=== PATIENT | male | born 1930 | race Caucasian/White ===

== ENCOUNTER 2017-07-07 18:15 | Observation (INO) ==
[2017-07-07 18:39] LABS: Microscopic, Urine URINE MICROSCOPIC (MICROSCOPIC)
[2017-07-07 18:41] LABS: Appearance,Urine SL CLOUDY (Clear); Bilirubin,Urine Negative (Negative); Blood, Urine 3+ (Negative); Color,Urine YELLOW (Yellow); Glucose,Urine (UA) Negative (Negative); Ketones,Urine Negative (Negative); Leukocyte Esterase,Urine 2+ (Negative); Protein,Urine TRACE (Negative); Urobilinogen,Urine 0.2 EU/dl (0.2)
[2017-07-07 18:51] LABS: Basophils % 0.6 % (0.1-2.0); Eosinophils # 0.1 K/mm3 (0.0-0.4); Eosinophils % 2.4 % (0.1-12.0); Lymphocytes % 21.4 K/mm3 (10-50); Mean Corpuscular HGB Conc 32.4 g/dL (31.8-35.4); Mean Corpuscular Hemoglobin 29.7 pg (27.0-31.2); Mean Corpuscular Volume 91.8 fl (80-94); Mean Platelet Volume 7.5 fl (7.4-10.4); Monocytes # 0.3 K/mm3 (0.1-1.0); Monocytes % 6.1 % (1.7-9.3); Neutrophils # 3.3 K/mm3 (1.8-7.8); Neutrophils % 69.5 % (37.0-80.0); Platelet Count 224 K/mm3 (142-424); Red Blood Count 3.37 M/mm3 (4.60-6.20); White Blood Count 4.7 K/mm3 (4.8-10.8)
--- NOTE | 2017-07-07 19:01 | Emergency Department Note ---
ED Disposition Clinical Impression: Urinary tract infection Qualifiers: Urinary tract infection type: site unspecified Hematuria presence: with hematuria Qualified Code(s): N39.0 - Urinary tract infection, site not specified Disposition: Still a Patient Condition on Discharge: Good Instructions: DI for Acute Abdomen Referrals: Ian Gabriel MD [Primary Care Provider] - - Critical Care Critical Care Time: No Attestation: On 07/07/17, the high probability of a clinically significant, sudden or life threatening deterioration of the following system(s) required my full and direct attention, intervention and personal management. The time I documented below is in addition to time spent performing reported procedures but includes the following listed in this critical care notation. Medical Decision Making - Qasim Inquiry Pt receiving controlled substance: No Vital Signs: 07/07/17 18:20 07/07/17 20:01 07/07/17 20:21 Temperature 97.5 F L Temperature Source Oral Pulse Rate [Left Radial] 74 72 73 Respiratory Rate 20 20 14 Blood Pressure [Right Arm] 115/49 120/62 137/61 Blood Pressure Mean [Right Arm] 71 81 86 Blood Pressure Source [Right Arm] Automatic Cuff Automatic Cuff Automatic Cuff Blood Pressure Position [Right Arm] Sitting Sitting Sitting 02 Sat by Pulse Oximetry 98 97 97 Oxygen Delivery Method Room Air Room Air Room Air - Lab Data Lab Results 07/07/17 18:30: Urine Color Yellow, Urine Appearance Sl cloudy, Urine pH 6.0, Ur Specific [place] 1.020, Urine Protein Trace, Urine Glucose (UA) Negative, Urine Ketones Negative, Urine Blood 3+, Urine Nitrate Negative, Urine Bilirubin Negative, Urine Urobilinogen 0.2, Ur Leukocyte Esterase 2+ A, Urine RBC 50-100, Urine WBC 50-100, Ur Squamous Epith Cells 3-5, Urine Bacteria 2+, Hyaline Casts Occasional 07/07/17 18:41: WBC 4.7 L, RBC 3.37 L, Hgb 10.0 L, Hct 31.0 L, MCV 91.8, MCH 29.7, MCHC 32.4, RDW 15.0, Plt Count 224, MPV 7.5, Neut % (Auto) 69.5, Lymph % ( Auto) 21.4, [place] % (Auto) 6.1, Eos % (Auto) 2.4, Baso % (Auto) 0.6, Neut # (Auto ) 3.3, Lymph # (Auto) 1.0, [place] # (Auto) 0.3, Eos # (Auto) 0.1, Baso # (Auto) 0.0 07/07/17 18:41: Sodium 139, Potassium 4.2, Chloride 102, Carbon Dioxide 28, Anion Gap 13.2, BUN 33 H, Creatinine 3.19 H, Estimated Creat Clear 19, Estimated GFR 19 L*, Est GFR ( Amer) 22 L, Glucose 153 H, Calcium 8.0 L, Total Bilirubin 0.3, AST 16, ALT 18, Alkaline Phosphatase 95, Total Protein 7.0 , Albumin 3.5, Globulin 3.5 H, Albumin/Globulin Ratio 1.0 L Result diagrams: 07/07/17 18:41 07/07/17 18:41 Orders (Tests/Meds): ED MEDICATIONS Generic Name Dose Route Start Last Admin Trade Name Freq PRN Reason Stop Dose Admin Alprazolam 0.25 mg 07/07/17 21:00 Xanax 0.25mg Tablet PO 08/06/17 20:59 BID [facility] Amiodarone HCl 200 mg 07/07/17 20:30 Cordarone 200mg Tablet PO 08/06/17 20:29 QDAY [facility] Aspirin 81 mg 07/07/17 20:30 Aspirin 81mg Chewable Tablet PO 08/06/17 20:29 ONCE [facility] Ceftriaxone Sodium 1 gm/ 50 mls @ 100 mls/hr 07/07/17 20:15 07/07/17 20:12 Sodium Chloride IV 07/21/17 20:14 100 mls/hr Q24H [facility] Administration Protocol Metoprolol Tartrate 50 mg 07/07/17 20:30 Lopressor 50mg Tablet PO 08/06/17 20:29 QDAY PRISCILA Non-Formulary Medication 125 mcg 07/08/17 09:00 Levothyroxine Sodium [Tirosint] PO 08/07/17 08:59 DAILY PRISCILA Non-Formulary Medication 5 mg 07/07/17 20:30 Melatonin [Melatonin] PO HS PRN Insomnia Non-Formulary Medication 150 mg 07/07/17 20:30 Ranitidine Hcl [Ranitidine Hcl] PO 08/06/17 20:29 QHS PRISCILA Non-Formulary Medication 2 puff 07/07/17 20:30 Tiotropium Donnelly [Spiriva Respimat] INHALATION 05/08/18 20:29 Q24H [facility] Pantoprazole Sodium 40 mg 07/07/17 20:30 Protonix 40mg Tablet PO 08/06/17 20:29 QAM [facility] Polyethylene Glycol 17 gm 07/07/17 20:30 Miralax 17gm Packet PO 08/06/17 20:29 Q10M [facility] Pravastatin Sodium 40 mg 07/07/17 20:30 Pravachol 40mg Tablet PO 08/06/17 20:29 QHS [facility] Tamsulosin HCl 0.4 mg 07/07/17 20:30 Flomax 0.4mg Capsule PO 08/06/17 20:29 QDAY [facility] Warfarin Sodium 3 mg 07/08/17 09:00 Coumadin 3mg Tablet PO 08/07/17 08:59 DAILY [facility] Discontinued Medications Generic Name Dose Route Start Last Admin Trade Name Freq PRN Reason Stop Dose Admin Morphine Sulfate 4 mg 07/07/17 20:09 07/07/17 20:13 Morphine 4mg/Ml Syringe IV 07/07/17 20:10 4 mg ONCE ONE Administration Ondansetron HCl 4 mg 07/07/17 20:09 07/07/17 20:13 Zofran 4mg/2ml Vial IV 07/07/17 20:10 4 mg ONCE ONE Administration ORDERS Category Date Time Status CT abdomen pelvis wo con Stat Cat Scan 07/07/17 18:29 Taken PT/INR [Prothrombin Time INR] Stat Lab 07/07/17 20:26 Ordered Urine Culture Stat Micro 07/07/17 18:30 Received - CT Data CT Scan: Abdomen, Pelvis Time Received: 20:[address] Reviewed: Yes: I have viewed the radiologist's interpretation Findings Narrative: CT scan interpreted by ad radiologist. Faxed report received and reviewed: Lesions in kidney and liver and bladder. Medical Decision Narrative: 8:15 PM: I have discussed the case with Dr. Gabriel who agrees to admit the patient to the hospital. We discussed the patient's clinical information, including history, exam, laboratory and radiology results and ED course. Per hospital procedure, I will write temporary bridge inpatient orders on the patient. Specific orders requested by the admitting physician: Rocephin, IV fluids, pain control General Adult HPI - General Chief complaint: Abdominal Pain Stated complaint: Abdominal Pain,kidneys not working normal Time Seen by Provider: 07/07/17 19:01 Mode of Arrival: Ambulatory Limitations: No Limitations Description of Symptoms (Recalled from ER Triage Doc. by RN): Pain in lower abdomen and lower back. Urinated about 1 hour ago and states was normal. Had BM this morning but states this has not been normal for a month says there is not enough of it. - History of Present Illness HPI narrative: Patient states that he has been "fighting this for a couple of weeks". States he has been trying to hold off to get in to see Dr. East, but did not feel that he could wait any longer. His appointment with Dr. Huff on in 4 days. Complains of generalized lower abdominal discomfort. Low back discomfort. Able to urinate and have bowel movements, but not to the extent that he would like to. No fever. Nausea, but no vomiting. Recently had a kidney removed for cancer. Then had another surgery because of some difficulty urinating. Review of records shows that he had a nephrectomy in December 2016. June 11 he had excision of multiple bladder tumors, left ureteroscopy with laser of recurrent ureteral tumors. Creatinine on 03/01/17 was 3.0. Creatinine 2 days ago was 3.07. - Related Data Home Medications Medication Instructions Recorded Confirmed alprazolam 0.25 mg tablet 0.25 mg PO BID 04/11/17 05/31/17 amiodarone 200 mg tablet 200 mg PO QDAY 04/11/17 05/31/17 aspirin 81 mg chewable tablet 81 mg PO ONCE 04/11/17 05/31/17 fluticasone 50 mcg/actuation 1 inh INHALATION BID 04/11/17 05/31/17 blister powder for inhalation hydrocortisone 2.5 % topical cream 1 applic TOPICAL ONCE 04/11/17 05/31/17 levothyroxine 125 mcg capsule 125 mcg PO DAILY 04/11/17 05/31/17 melatonin 5 mg tablet 5 mg PO HS PRN 04/11/17 05/31/17 metoprolol tartrate 50 mg tablet 50 mg PO QDAY 04/11/17 05/31/17 pantoprazole 40 mg tablet,delayed 40 mg PO QAM 04/11/17 05/31/17 release polyethylene glycol 3350 17 gram 17 g PO Q10M 04/11/17 05/31/17 oral powder packet pravastatin 40 mg tablet 40 mg PO QHS 04/11/17 05/31/17 ranitidine 150 mg capsule 150 mg PO QHS 04/11/17 05/31/17 tamsulosin 0.4 mg capsule 0.4 mg PO QDAY 04/11/17 05/31/17 tiotropium bromide 2.5 2 puff INHALATION Q24H 04/11/17 05/31/17 mcg/actuation mist for inhalation warfarin 3 mg tablet 3 mg PO DAILY 04/11/17 05/31/17 Previous Rx's Medication Instructions Recorded Hydrocodone/Acetaminophen 1 each PO Q6H 3 Days #12 tab 05/31/17 [Hydrocodone-Acetamin 5-325 mg] Allergies Allergy/AdvReac Type Severity Reaction Status Date / Time sulindac Allergy Mild JAUNDICE Verified 05/31/17 06:31 metoclopramide Allergy Unknown Verified 05/31/17 06:31 esomeprazole [From Nexium] AdvReac Intermediate N/V/D Verified 05/31/17 06:31 niacin AdvReac Intermediate FLUSHING Verified 05/31/17 06:31 [facility] History I have reviewed the patient's past medical history: Yes Medical History: Reports:: Cancer, Hyperlipidemia, Hypertension, Internal Pacemaker Denies:: Diabetes Mellitus Type 1, Diabetes Mellitus Type 2 Laterality Cases: Bilateral: Myringotomy (Ear Tubes), Other Other Surgeries: Yes: Colon Resection, Hernia Repair, Pacemaker - Social History Smoking Status: Former smoker Smoking End Date: 1963 Alcohol Intake: never - Psychiatric History Expresses thoughts of harming self/others: None Suicide Plan Description: No Plan ROS Obtained: Yes All systems reviewed & no additional complaints - Constitutional Constitutional: Denies fever(s) - ENT Ears, Nose, Mouth, and Throat: Reports other (Chronically hard of hearing) - Gastrointestinal Gastrointestingal: Reports: abdominal pain, nausea. Denies: diarrhea, vomiting Comments: Has bowel movements almost daily, but just not as much as he would like to - Genitourinary Male Genitourinary: Reports difficulty urinating Physical Exam - General General appearance: alert, in no apparent distress Comment: Hard of hearing - Head Head exam: atraumatic, normocephalic, normal inspection - Eye Eye exam: Present: normal appearance, PERRL, EOMI - ENT ENT exam: Present: normal exam, normal oropharynx, mucous membranes moist, TM's normal bilaterally, normal external ear exam - Neck Neck exam: Present: normal inspection, full ROM, trachea midline. Absent: meningismus, lymphadenopathy - Chest Chest inspection: Present: normal inspection, symmetric chest wall rise. Absent : tenderness - Respiratory Respiratory exam: Present: normal lung sounds bilaterally. Absent: respiratory distress - Cardiovascular Cardiovascular exam: Present: regular rate, normal rhythm. Absent: JVD - Abdominal Exam Abdominal exam: Present: soft, tenderness, normal bowel sounds. Absent: distention, guarding, rebound, rigidity Abdominal tenderness: Present: RLQ, LLQ, suprapubic - Extremities Exam Extremities exam: Present: normal inspection, full ROM, normal capillary refill. Absent: calf tenderness - Back Exam Back exam: Present: normal inspection. Absent: tenderness, CVA tenderness (R), CVA tenderness (L) - Neurological Exam Neurological exam: Present: alert, oriented X3 - Psychiatric Psychiatric exam: Present: normal affect, normal mood - Skin Skin exam: Present: warm, dry, intact, normal color
[2017-07-07 19:03] LABS: Albumin Level 3.5 gm/dL (3.4-5.0); Anion Gap 13.2 mEq/L (5-15); Bilirubin,Total 0.3 mg/dL (0.2-1.0); Globulin 3.5 gm/dl (1.3-3.2); Potassium 4.2 mmoL/L (3.5-5.1)
[2017-07-07 19:30] LABS: Bacteria,Urine 2+ /lpf; RBC,Urine 50-100 #/hpf (0-3); WBC,Urine 50-100 #/hpf (0-3)
[2017-07-07 19:31] LABS: Hyaline Casts,Urine Occasional #/lpf (0)
[2017-07-07 20:47] LABS: INR 1.93 (0.9-1.1)
--- NOTE | 2017-07-08 07:48 | Pharmacy Consult Notes ---
[facility] Pharmacy VTE Monitoring - Patient Demographics Admission date: 07/07/17 Report Date: 07/08/17 Time: 07:47 Allergies/Adverse Reactions: Patient Allergies sulindac Allergy (Mild, Verified 05/31/17 06:31) JAUNDICE metoclopramide Allergy (Unknown, Verified 05/31/17 06:31) esomeprazole [From Nexium] Adverse Reaction (Intermediate, Verified 05/31/17 06: 31) N/V/D niacin Adverse Reaction (Intermediate, Verified 05/31/17 06:31) FLUSHING Height: 1.75 m Weight: 83.036 kg Patient Problems: Current Active Problems Urinary tract infection (Acute) - VTE Risk Labs: VTE Related Lab Results Hgb 10.0 g/dL (14.1-18.0) L 07/07/17 18:41 Hct 31.0 % (42.0-52.0) L 07/07/17 18:41 Plt Count 224 K/mm3 (142-424) 07/07/17 18:41 PT 21.0 seconds (9.4-11.8) H 07/07/17 18:41 INR 1.93 (0.9-1.1) H 07/07/17 18:41 BUN 33 mg/dL (7-18) H 07/07/17 18:41 Creatinine 3.19 mg/dL (0.70-1.30) H 07/07/17 18:41 Estimated Creat Clear 19 mL/min (0-300) 07/07/17 18:41 VTE Score: 7 VTE Risk Level: Moderate Risk - Prophylaxis VTE Prophylaxis Ordered?: Yes Types of VTE Prophylaxis: Pharmacological Pharmacologic Type: Warfarin - VTE Diagnosis Confirmed Treatment or plan recommended: Continue Current Treatment
--- NOTE | 2017-07-08 08:47 | H&P/Discharge Summary ---
General - General Admission date: 07/07/17 Discharge date: 07/08/17 *Admission Date: 07/07/17 *Chief complaint: Weakness *History of present illness: 87-year-old white male brought to the emergency department by his family because of weakness. 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 He has also had metastases into the bladder and has had a couple of different procedures by Dr. East to remove these tumors. He is also had chronic anemia with hemoglobins in the upper 9/lower 10 range. He is also maintained on warfarin because of atrial fibrillation. He has also had worsening chronic kidney disease with his baseline creatinine now at 3.0. Last week in the Coumadin clinic here his cousin requested that he have a CBC done because "he is just so weak." This was 10 g. He was brought to the emergency department late last night, and his family indicated they did not feel comfortable with him at home overnight because he was so weak and that "something must be wrong." He was watched overnight with IV fluids. This morning he has complaints of weakness but ate 100% of his breakfast in spite of complaining that "my stomach hurts" and has no complaints of chest pain , shortness of air or problems urinating or having bowel movements. 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), Hyperlipidemia, Hypertension, Internal Pacemaker Denies:: Diabetes Mellitus Type 1, Diabetes Mellitus Type 2 Other Medical History: Reports: Arthritis, Cataracts, Liver Disease, Sinus Problems Laterality Cases: Bilateral: Myringotomy (Ear Tubes), Other Other Surgeries: Yes: Cancer Surgery, Cardiac Catheterization, Cardiac Surgery, Colon Resection, Colostomy, Coronary Stent, EGD, Hernia Repair, Pacemaker - *Social History Educational Level: Attended High School Smoking Status: Former smoker Smoking End Date: 1963 Alcohol Intake: never Occupational Status: retired Housing: house Household Members: family - Psychiatric History Expresses thoughts of harming self/others: None Suicide Plan Description: No Plan *Family Hx:: Cancer, Diabetes, Hyperlipidemia, Hypertension, Kidney Disease Review of Systems - Review of Systems Review of systems:: unable to obtain, other, pertinent systems reviewed and negative unless documented below - Constitutional Reports fatigue, Reports lack of energy, Reports malaise - Eyes Denies blind spots, Denies blurry vision, Denies change in vision - ENT Denies abnormal hearing, Denies bleeding gums - *Cardiovascular Reports shortness of breath, Reports shortness of breath with activity, Reports irregular heart rhythm, Denies chest pain, Denies chest pain at rest - *Respiratory Denies change in phlegm color, Denies chest congestion, Denies cough - *Gastrointestinal Reports abdominal pain, Reports belching, Reports bloating, Denies change in bowel habits, Denies change in stools, Denies coffee ground vomit, Denies constipation, Denies cramping, Denies loose stools - *Genitourinary Reports difficulty urinating - *Musculoskeletal Reports abnormal walking, Reports joint pain Exam Vital signs and Labs for Last 24 Hours: Temp Pulse Resp BP Pulse Ox 97.5 F L 70 18 118/54 92 L 07/08/17 07:47 07/08/17 07:47 07/08/17 07:47 07/08/17 07:47 07/08/17 08:00 I & O for Last 24 hours: Intake & Output 07/05/17 07/06/17 07/07/17 07/08/17 11:59 11:59 11:59 11:59 Intake Total 480 / 480 Output Total 700 / 700 Balance -220 / -220 Weight 183 lb 1 oz Narrative: Patient is alert, oriented 3. Slightly pale appearing but at baseline. Lungs are clear, heart rate irregular, abdomen is soft, subjective abdominal pain but no masses palpable. Liver edge is palpable and tender. No edema, no jaundice. Hospital Course Hospital Course: Patient was admitted overnight, this morning he is eating well, there is no changes in his baseline exam. I certainly believe the patient is having diminished functional status and is globally weak and tired, but this can be explained by his chronic medical conditions and there is really no role for hospitalization in this patient. I have explained this to him. We will institute home health therapy for PT/OT/nursing observation. He needs to follow-up with his urologist as scheduled. Labs are at baseline. He will continue his current home medication. He does seem to have a mild cystitis, we will treat this as an outpatient count await culture results. DS: Diagnosis - Discharge Diagnosis (1) Weakness Status: Acute (2) Urinary tract infection Status: Acute (3) Bladder cancer Status: Acute Discharge Medications Discharge Medications: Home Medications Medication Instructions Recorded Confirmed Type alprazolam 0.25 mg tablet 0.25 mg PO TID 04/11/17 07/08/17 History amiodarone 200 mg tablet 200 mg PO QDAY 04/11/17 07/08/17 History aspirin 81 mg chewable tablet 81 mg PO ONCE 04/11/17 05/31/17 History fluticasone 50 mcg/actuation 1 inh INHALATION BID 04/11/17 05/31/17 History blister powder for inhalation hydrocortisone 2.5 % topical cream 1 applic TOPICAL ONCE 04/11/17 05/31/17 History levothyroxine 125 mcg capsule 125 mcg PO DAILY 04/11/17 07/08/17 History melatonin 5 mg tablet 5 mg PO HS PRN 04/11/17 07/08/17 History metoprolol tartrate 50 mg tablet 50 mg PO TID 04/11/17 07/08/17 History pantoprazole 40 mg tablet,delayed 40 mg PO QAM 04/11/17 05/31/17 History release polyethylene glycol 3350 17 gram 17 g PO Q10M 04/11/17 05/31/17 History oral powder packet pravastatin 40 mg tablet 40 mg PO QHS 04/11/17 07/08/17 History ranitidine 150 mg capsule 150 mg PO BID 04/11/17 07/08/17 History tamsulosin 0.4 mg capsule 0.4 mg PO BID 04/11/17 07/08/17 History tiotropium bromide 2.5 2 puff INHALATION Q24H 04/11/17 07/08/17 History mcg/actuation mist for inhalation warfarin 3 mg tablet 3 mg PO DAILY 04/11/17 05/31/17 History Digoxin [Digoxin] 125 mcg PO DAILY 07/08/17 07/08/17 History Furosemide [Furosemide 40MG tAB] 40 mg PO DAILY 07/08/17 07/08/17 History Disposition Disposition: Home, Self-Care
== END 2017-07-08 09:51 | disposition home health service (06) ==
LOC: ER 18:15 → 2ND 18:15
PROVIDERS: ADMIT Internal Medicine Adolescent Medicine; ATTEND Internal Medicine Adolescent Medicine

== ENCOUNTER 2017-08-18 09:11 | Observation (INO) ==
--- NOTE | 2017-08-18 09:29 | Emergency Department Note ---
ED Disposition Clinical Impression: Fall, Rib pain on left side, Metastatic cancer, Pre-syncope, Small vessel disease, cerebrovascular, Lung nodules, Chronic renal failure, Hypermagnesemia Disposition: Home, Self-Care Condition on Discharge: Fair Referrals: Ian Gabriel MD [Primary Care Provider] - - Critical Care Critical Care Time: No Attestation: On , the high probability of a clinically significant, sudden or life threatening deterioration of the following system(s) required my full and direct attention, intervention and personal management. The time I documented below is in addition to time spent performing reported procedures but includes the following listed in this critical care notation. Medical Decision Making - Qasim Inquiry Pt receiving controlled substance: No Qasim was queried for this patient: No Vital Signs: 08/18/17 09:17 08/18/17 10:16 08/18/17 10:46 Temperature 98.5 F Temperature Source Oral Pulse Rate [Left Radial] 78 78 Pulse Rate [Orthostatic Lying Left Radial] 82 Pulse Rate [Orthostatic Sitting Left Radial] 78 Pulse Rate [Orthostatic Standing Left Radial] 80 Respiratory Rate 20 18 Blood Pressure [Orthostatic Lying Right Arm] 154/36 Blood Pressure [Orthostatic Sitting Right Arm] 118/44 Blood Pressure [Orthostatic Standing Right Arm] 112/38 Blood Pressure [Right Arm] 110/36 118/44 Blood Pressure Mean [Right Arm] 60 68 Blood Pressure Source [Right Arm] Manual Cuff/ Doppler Blood Pressure Position [Right Arm] Sitting Sitting 02 Sat by Pulse Oximetry 98 98 Oxygen Delivery Method Room Air 08/18/17 11:10 Temperature Temperature Source Pulse Rate [Left Radial] 72 Pulse Rate [Orthostatic Lying Left Radial] Pulse Rate [Orthostatic Sitting Left Radial] Pulse Rate [Orthostatic Standing Left Radial] Respiratory Rate 18 Blood Pressure [Orthostatic Lying Right Arm] Blood Pressure [Orthostatic Sitting Right Arm] Blood Pressure [Orthostatic Standing Right Arm] Blood Pressure [Right Arm] 112/38 Blood Pressure Mean [Right Arm] 62 Blood Pressure Source [Right Arm] Manual Cuff/ Doppler Blood Pressure Position [Right Arm] Sitting 02 Sat by Pulse Oximetry 96 Oxygen Delivery Method Room Air - Lab Data Lab Results 08/18/17 10:35: WBC 5.7, RBC 3.40 L, Hgb 9.6 L, Hct 30.3 L, MCV 89.3, MCH 28.2, MCHC 31.6 L, RDW 15.9, Plt Count 196, MPV 8.0, Neut % (Auto) 81.2 H, Lymph % ( Auto) 10.5, [place] % (Auto) 6.5, Eos % (Auto) 1.4, Baso % (Auto) 0.4, Neut # (Auto ) 4.6, Lymph # (Auto) 0.6 L, [place] # (Auto) 0.4, Eos # (Auto) 0.1, Baso # (Auto) 0.0 08/18/17 10:35: Sodium 136, Potassium 4.1, Chloride 101, Carbon Dioxide 29, Anion Gap 10.1, BUN 22 H, Creatinine 3.24 H, Estimated Creat Clear 19, Estimated GFR 18 L*, Est GFR ( Amer) 22 L, Glucose 190 H, Calcium 8.5, Total Bilirubin 0.5, AST 23, ALT 25, Alkaline Phosphatase 87, Total Creatine Kinase 200, CK-MB (CK-2) < 0.5, CK-MB (CK-2) Rel Index 0.3, Troponin I < 0.02, Total Protein 6.8, Albumin 3.5, Globulin 3.3 H, Albumin/Globulin Ratio 1.1 08/18/17 10:35: Magnesium 2.4 H Result diagrams: 08/18/17 10:35 08/18/17 10:35 Orders (Tests/Meds): ED MEDICATIONS Generic Name Dose Route Start Last Admin Trade Name Freq PRN Reason Stop Dose Admin Sodium Chloride 1,000 mls @ 999 mls/hr 08/18/17 11:00 08/18/17 10:52 Sod Chlor 0.9% 1000ml Bag IV 08/18/17 12:00 999 mls/hr .Q1H1M PRISCILA Administration Discontinued Medications Generic Name Dose Route Start Last Admin Trade Name Freq PRN Reason Stop Dose Admin Sodium Chloride 500 mls @ 999 mls/hr 08/18/17 10:30 08/18/17 11:10 Sod Chlor 0.9% 1000ml Bag IV 08/18/17 11:00 Not Given .Q31M PRISCILA ORDERS Category Date Time Status Urinalysis and Microscopic Stat Lab 08/18/17 10:30 Ordered - CT Data CT Scan: Head Time Received: 12:[address] Reviewed: Yes: I discussed the CT results w/the radiologist Preliminary Findings: Normal/NAD Findings Narrative: MPRESSION: ...... No acute intracranial findings. . Cerebral atrophy. Chronic small vessel deep white matter ischemic gliotic changes Stable CT head without contrast - ECG Data Tracing #1 Accelerated junctional rhythm 70/min with T-wave inversions in the inferior lateral leads. ECG initial impression date: 08/18/17 ECG initial impression time: 10:05 Medical Decision Narrative: I discussed with Dr. Gabriel his primary care physician the events that led to his ED visit and also the events and the radiology department. Dr. Gabriel stating that he is getting more more frail he is probably a candidate for snf and he recommended for him to be admitted for evaluation. Fall HPI - General Stated Complaint: a/o fell at home- left side pain Time Seen by Provider: 08/18/17 09:20 Mode of Arrival: Wheelchair Limitations: No Limitations Description of Symptoms (Recalled from ER Triage Doc. by RN): Pt states he was trying to get to the bathroom when he fell C/O of rib pain. Pt states he did hit his head but no LOC. - History of Present Illness HPI Narrative: 87 years old white male with history of metastatic cancer of unknown origin. At 5 AM he got up to go to the bathroom that is when he tripped and fell and injured his left lower ribs falling on the floor, he states that he hit his head also. There is no loss of consciousness there is no neck pain mid or lower back pain. He denies being short of breath having chest pain nausea vomiting or diarrhea. He has no active bleeding from the nose ears or mouth, denies having hemoptysis hematemesis coffee-ground emesis bleeding per rectum or melanotic stool. Other than left lower rib pain he has no other complaints. He is brought by the family for evaluation due to his rib pain. The history was verified by his sister who brought him to the ED. complaint: fall Onset (ago): hour(s) (4 hours.) Fall from: standing Place fall occurred: home Loss of consciousness: none Prolonged down time: no Symptoms prior to fall: none Context: tripped/slipped Location of injury: head, other Severity: mild Severity scale (1-10): 3 Quality: dull Associated symptoms (after fall): denies - Related Data Home Medications Medication Instructions Recorded Confirmed alprazolam 0.25 mg tablet 0.25 mg PO TID 04/11/17 08/18/17 amiodarone 200 mg tablet 200 mg PO QDAY 04/11/17 08/18/17 aspirin 81 mg chewable tablet 81 mg PO ONCE 04/11/17 08/18/17 fluticasone 50 mcg/actuation 1 inh INHALATION BID 04/11/17 08/18/17 blister powder for inhalation levothyroxine 125 mcg capsule 125 mcg PO DAILY 04/11/17 08/18/17 melatonin 5 mg tablet 5 mg PO HS PRN 04/11/17 08/18/17 metoprolol tartrate 50 mg tablet 50 mg PO TID 04/11/17 08/18/17 pantoprazole 40 mg tablet,delayed 40 mg PO QAM 04/11/17 08/18/17 release polyethylene glycol 3350 17 gram 17 g PO Q10M 04/11/17 08/18/17 oral powder packet pravastatin 40 mg tablet 40 mg PO QHS 04/11/17 08/18/17 ranitidine 150 mg capsule 150 mg PO BID 04/11/17 08/18/17 tamsulosin 0.4 mg capsule 0.4 mg PO BID 04/11/17 08/18/17 tiotropium bromide 2.5 2 puff INHALATION Q24H 04/11/17 08/18/17 mcg/actuation mist for inhalation warfarin 3 mg tablet 3 mg PO DAILY 04/11/17 08/18/17 Digoxin 125 mcg PO DAILY 07/08/17 08/18/17 Furosemide [Furosemide 40MG tAB] 40 mg PO DAILY 07/08/17 08/18/17 Oxycodone HCl/Acetaminophen 1 tab PO Q6HP PRN 08/02/17 08/18/17 [Percocet 5/325mg tablet] Allergies Allergy/AdvReac Type Severity Reaction Status Date / Time sulindac Allergy Mild JAUNDICE Verified 08/14/17 13:29 metoclopramide Allergy Unknown Verified 08/14/17 13:29 esomeprazole [From Nexium] AdvReac Intermediate N/V/D Verified 08/14/17 13:29 niacin AdvReac Intermediate FLUSHING Verified 08/14/17 13:29 [facility] History I have reviewed the patient's past medical history: Yes Medical History: Reports:: Cancer, Hyperlipidemia, Hypertension, Internal Pacemaker Denies:: Diabetes Mellitus Type 1, Diabetes Mellitus Type 2, MRSA Other Medical History: Reports: Arthritis, Cataracts, Liver Disease, Sinus Problems Laterality Cases: Bilateral: Myringotomy (Ear Tubes), Other Other Surgeries: Yes: Cancer Surgery, Cardiac Catheterization, Cardiac Surgery, Colon Resection, Colostomy, Coronary Stent, EGD, Hernia Repair, Pacemaker Amputation: No Fractures: No - Social History Smoking Status: Former smoker Alcohol Intake: never Substance Use Type: denies use Occupational Status: retired Housing: house Household Members: family - Psychiatric History Expresses thoughts of harming self/others: None Suicide Plan Description: No Plan Family Hx:: Cancer, Diabetes, Hyperlipidemia, Hypertension, Kidney Disease ROS Obtained: Yes All systems reviewed & no additional complaints Physical Exam - General General appearance: alert, in no apparent distress - Head Head exam: atraumatic, normocephalic, normal inspection - Eye Eye exam: Present: normal appearance, PERRL, EOMI - ENT ENT exam: Present: normal exam, normal oropharynx, mucous membranes moist, TM's normal bilaterally, normal external ear exam - Neck Neck exam: Present: normal inspection, full ROM, trachea midline. Absent: tenderness, meningismus, lymphadenopathy - Chest Chest inspection: Present: normal inspection, symmetric chest wall rise, tenderness, other (Tenderness of the left lower ribs at the posterior axillary line. ) - Respiratory Respiratory exam: Present: normal lung sounds bilaterally. Absent: respiratory distress - Cardiovascular Cardiovascular exam: Present: regular rate, normal rhythm. Absent: JVD - Abdominal Exam Abdominal exam: Present: soft, normal bowel sounds. Absent: distention, tenderness, guarding, rebound, rigidity - Extremities Exam Extremities exam: Present: normal inspection, full ROM, normal capillary refill. Absent: calf tenderness - Back Exam Back exam: Present: normal inspection. Absent: tenderness - Neurological Exam Neurological exam: Present: alert, oriented X3, CN II-XII intact, motor sensory deficit, other (Patient has a short wide-based gait). Absent: normal gait - Psychiatric Psychiatric exam: Present: normal affect, normal mood - Skin Skin exam: Present: warm, dry, intact, normal color - Lymphatic Lymphatic Findings: no adenopathy
[2017-08-18 10:48] LABS: Basophils % 0.4 % (0.1-2.0); Eosinophils # 0.1 K/mm3 (0.0-0.4); Eosinophils % 1.4 % (0.1-12.0); Hematocrit 30.3 % (42.0-52.0); Hemoglobin 9.6 g/dL (14.1-18.0); Lymphocytes # 0.6 K/mm3 (0.7-4.5); Lymphocytes % 10.5 K/mm3 (10-50); Mean Corpuscular HGB Conc 31.6 g/dL (31.8-35.4); Mean Corpuscular Hemoglobin 28.2 pg (27.0-31.2); Mean Corpuscular Volume 89.3 fl (80-94); Monocytes # 0.4 K/mm3 (0.1-1.0); Monocytes % 6.5 % (1.7-9.3); Neutrophils # 4.6 K/mm3 (1.8-7.8); Neutrophils % 81.2 % (37.0-80.0); Platelet Count 196 K/mm3 (142-424); Red Cell Distribution Width 15.9 % (11.5-17.5); White Blood Count 5.7 K/mm3 (4.8-10.8)
[2017-08-18 11:14] LABS: Alanine Aminotransferase 25 U/L (12-78); Albumin Level 3.5 gm/dL (3.4-5.0); Albumin/Globulin Ratio 1.1 (1.1-1.8); Alkaline Phosphatase 87 U/L (46-116); Anion Gap 10.1 mEq/L (5-15); Aspartate Amino Transferase 23 U/L (15-37); Bilirubin,Total 0.5 mg/dL (0.2-1.0); Blood Urea Nitrogen 22 mg/dL (7-18); Calcium 8.5 mg/dL (8.5-10.1); Carbon Dioxide 29 mmol/L (21.0-32.0); Chloride 101 mmol/L (98-107); Creatine Kinase 200 U/L (39-308); Globulin 3.3 gm/dl (1.3-3.2); Glucose 190 mg/dL (74-106); Potassium 4.1 mmoL/L (3.5-5.1); Sodium 136 mmol/L (136-145); Total Protein,Serum 6.8 gm/dL (6.4-8.2)
[2017-08-18 13:46] LABS: Microscopic, Urine URINE MICROSCOPIC (MICROSCOPIC)
[2017-08-18 13:48] LABS: Appearance,Urine CLOUDY (Clear); Blood, Urine 3+ (Negative); Color,Urine RED (Yellow); Glucose,Urine (UA) Negative (Negative); Ketones,Urine Negative (Negative); Leukocyte Esterase,Urine 2+ (Negative); PH,Urine 6.5 (5.0-8.5); Protein,Urine 2+ (Negative); Urobilinogen,Urine 0.2 EU/dl (0.2)
[2017-08-18 14:20] LABS: Bacteria,Urine 4+ /lpf; RBC,Urine TNTC #/hpf (0-3); WBC,Urine TNTC #/hpf (0-3)
[2017-08-18 14:21] LABS: Bilirubin,Urine Negative (Negative)
--- NOTE | 2017-08-18 14:54 | Pharmacy Consult Notes ---
[facility] Pharmacy VTE Monitoring - Patient Demographics Admission date: 08/18/17 Report Date: 08/18/17 Time: 14:54 Allergies/Adverse Reactions: Patient Allergies sulindac Allergy (Mild, Verified 08/14/17 13:29) JAUNDICE metoclopramide Allergy (Unknown, Verified 08/14/17 13:29) esomeprazole [From Nexium] Adverse Reaction (Intermediate, Verified 08/14/17 13: 29) N/V/D niacin Adverse Reaction (Intermediate, Verified 08/14/17 13:29) FLUSHING Height: 1.75 m Weight: 80.343 kg Patient Problems: Current Active Problems Fall (Acute) Rib pain on left side (Acute) Metastatic cancer (Acute) Pre-syncope (Acute) Small vessel disease, cerebrovascular (Acute) Lung nodules (Acute) Chronic renal failure (Acute) Hypermagnesemia (Acute) - VTE Risk Labs: VTE Related Lab Results Hgb 9.6 g/dL (14.1-18.0) L 08/18/17 10:35 Hct 30.3 % (42.0-52.0) L 08/18/17 10:35 Plt Count 196 K/mm3 (142-424) 08/18/17 10:35 BUN 22 mg/dL (7-18) H 08/18/17 10:35 Creatinine 3.24 mg/dL (0.70-1.30) H 08/18/17 10:35 Estimated Creat Clear 19 mL/min (0-300) 08/18/17 10:35 - Prophylaxis VTE Prophylaxis Ordered?: Yes Types of VTE Prophylaxis: TEDS Knee High Location of Applied Device: Bilateral Lower Extremeties
[2017-08-19 06:48] LABS: Basophils % 0.4 % (0.1-2.0); Eosinophils # 0.1 K/mm3 (0.0-0.4); Hematocrit 30.1 % (42.0-52.0); Hemoglobin 9.7 g/dL (14.1-18.0); Lymphocytes # 0.8 K/mm3 (0.7-4.5); Lymphocytes % 17.5 K/mm3 (10-50); Mean Corpuscular HGB Conc 32.3 g/dL (31.8-35.4); Mean Corpuscular Hemoglobin 28.5 pg (27.0-31.2); Mean Corpuscular Volume 88.4 fl (80-94); Mean Platelet Volume 7.9 fl (7.4-10.4); Monocytes # 0.3 K/mm3 (0.1-1.0); Monocytes % 7.1 % (1.7-9.3); Neutrophils # 3.5 K/mm3 (1.8-7.8); Platelet Count 205 K/mm3 (142-424); White Blood Count 4.8 K/mm3 (4.8-10.8)
[2017-08-19 06:54] LABS: Anion Gap 12.1 mEq/L (5-15); Potassium 4.1 mmoL/L (3.5-5.1)
--- NOTE | 2017-08-19 07:28 | History & Physical Report ---
*Admission Date: 08/18/17 *Chief complaint: Fall/syncope *History of present illness: 87-year-old white male with recurrent atrial fibrillation and metastatic renal cell carcinoma status post left nephrectomy with multiple metastases in the abdomen and bladder, who came to the emergency department after a fall yesterday at home and striking his left ribs and having significant pain. In the ER he had no fractures noted but was noted to be very weak, have chest and abdominal pain and to have worsening renal function. He was admitted overnight for observation, further diagnostic testing. 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 Multiple other metastatic sites Laterality Cases: Bilateral: Myringotomy (Ear Tubes), Other Other Surgeries: Yes: Cancer Surgery, Cardiac Catheterization, Cardiac Surgery, Colon Resection, Colostomy, Coronary Stent, EGD, Hernia Repair, Pacemaker Amputation: No Fractures: No - *Social History Educational Level: Attended Grade School Smoking Status: Never smoker Alcohol Intake: never Substance Use Type: denies use Occupational Status: retired Housing: house Household Members: family - Psychiatric History Expresses thoughts of harming self/others: None Suicide Plan Description: No Plan *Family Hx:: Cancer, Diabetes, Hyperlipidemia, Hypertension, Kidney Disease Review of Systems - Constitutional Reports fatigue, Denies anorexia, Denies body ache(s), Denies chills - Eyes Denies blind spots, Denies blurry vision - ENT Reports abnormal hearing - *Cardiovascular Reports shortness of breath, Reports shortness of breath with activity, Reports irregular heart rhythm, Reports leg swelling, Denies chest pain, Denies chest pain at rest, Denies chest pain with activity - *Respiratory Denies change in phlegm color, Denies chest congestion, Denies cough - *Gastrointestinal Denies abdominal pain - *Genitourinary Denies difficulty urinating - *Musculoskeletal Reports abnormal walking, Reports back pain, Reports limited joint movement - *Neurologic Reports abnormal walking, Reports abnormal hearing, Denies abnormal movements, Denies abnormal speech, Denies seizure-like activity - Psychiatric Denies abnormal sleep pattern - Endocrine Denies cold intolerance Meds Home Medications Medication Instructions Recorded Confirmed Type alprazolam 0.25 mg tablet 0.25 mg PO TID 04/11/17 08/18/17 History amiodarone 200 mg tablet 200 mg PO QDAY 04/11/17 08/18/17 History aspirin 81 mg chewable tablet 81 mg PO ONCE 04/11/17 08/18/17 History fluticasone 50 mcg/actuation 1 inh INHALATION BID 04/11/17 08/18/17 History blister powder for inhalation levothyroxine 125 mcg capsule 125 mcg PO DAILY 04/11/17 08/18/17 History melatonin 5 mg tablet 5 mg PO HS PRN 04/11/17 08/18/17 History metoprolol tartrate 50 mg tablet 50 mg PO TID 04/11/17 08/18/17 History pantoprazole 40 mg tablet,delayed 40 mg PO QAM 04/11/17 08/18/17 History release polyethylene glycol 3350 17 gram 17 g PO Q10M 04/11/17 08/18/17 History oral powder packet pravastatin 40 mg tablet 40 mg PO QHS 04/11/17 08/18/17 History ranitidine 150 mg capsule 150 mg PO BID 04/11/17 08/18/17 History tamsulosin 0.4 mg capsule 0.4 mg PO BID 04/11/17 08/18/17 History tiotropium bromide 2.5 2 puff INHALATION Q24H 04/11/17 08/18/17 History mcg/actuation mist for inhalation Digoxin 125 mcg PO DAILY 07/08/17 08/18/17 History Furosemide [Furosemide 40MG tAB] 40 mg PO DAILY 07/08/17 08/18/17 History Oxycodone HCl/Acetaminophen 1 tab PO Q6HP PRN 08/02/17 08/18/17 History [Percocet 5/325mg tablet] Allergies Allergy/AdvReac Type Severity Reaction Status Date / Time sulindac Allergy Mild JAUNDICE Verified 08/14/17 13:29 metoclopramide Allergy Unknown Verified 08/14/17 13:29 esomeprazole [From Nexium] AdvReac Intermediate N/V/D Verified 08/14/17 13:29 niacin AdvReac Intermediate FLUSHING Verified 08/14/17 13:29 Exam Vital signs and Labs for Last 24 Hours: Temp Pulse Resp BP Pulse Ox 98.5 F 76 20 171/59 98 08/19/17 07:16 08/19/17 07:16 08/19/17 07:16 08/19/17 07:16 08/19/17 07:16 Laboratory Results - last 24 hr 08/18/17 10:35: WBC 5.7, RBC 3.40 L, Hgb 9.6 L, Hct 30.3 L, MCV 89.3, MCH 28.2, MCHC 31.6 L, RDW 15.9, Plt Count 196, MPV 8.0, Neut % (Auto) 81.2 H, Lymph % ( Auto) 10.5, [place] % (Auto) 6.5, Eos % (Auto) 1.4, Baso % (Auto) 0.4, Neut # (Auto ) 4.6, Lymph # (Auto) 0.6 L, [place] # (Auto) 0.4, Eos # (Auto) 0.1, Baso # (Auto) 0.0 08/18/17 10:35: Sodium 136, Potassium 4.1, Chloride 101, Carbon Dioxide 29, Anion Gap 10.1, BUN 22 H, Creatinine 3.24 H, Estimated Creat Clear 19, Estimated GFR 18 L*, Est GFR ( Amer) 22 L, Glucose 190 H, Calcium 8.5, Total Bilirubin 0.5, AST 23, ALT 25, Alkaline Phosphatase 87, Total Creatine Kinase 200, CK-MB (CK-2) < 0.5, CK-MB (CK-2) Rel Index 0.3, Troponin I < 0.02, Total Protein 6.8, Albumin 3.5, Globulin 3.3 H, Albumin/Globulin Ratio 1.1 08/18/17 10:35: Magnesium 2.4 H 08/18/17 13:04: Troponin I < 0.02 08/18/17 13:29: Urine Color Red, Urine Appearance Cloudy, Urine pH 6.5, Ur Specific [place] 1.010, Urine Protein 2+, Urine Glucose (UA) Negative, Urine Ketones Negative, Urine Blood 3+, Urine Nitrate Negative, Urine Bilirubin Negative, Urine Urobilinogen 0.2, Ur Leukocyte Esterase 2+ A, Urine RBC Tntc, Urine WBC Tntc, Ur Squamous Epith Cells 10-20, Urine Bacteria 4+ 08/18/17 18:25: Troponin I < 0.02 08/19/17 00:20: Troponin I < 0.02 08/19/17 06:17: WBC 4.8, RBC 3.40 L, Hgb 9.7 L, Hct 30.1 L, MCV 88.4, MCH 28.5, MCHC 32.3, RDW 16.0, Plt Count 205, MPV 7.9, Neut % (Auto) 73.0, Lymph % (Auto) 17.5, [place] % (Auto) 7.1, Eos % (Auto) 2.0, Baso % (Auto) 0.4, Neut # (Auto) 3.5 , Lymph # (Auto) 0.8, [place] # (Auto) 0.3, Eos # (Auto) 0.1, Baso # (Auto) 0.0 08/19/17 06:17: Sodium 139, Potassium 4.1, Chloride 104, Carbon Dioxide 27, Anion Gap 12.1, BUN 20 H, Creatinine 2.73 H, Estimated Creat Clear 22, Estimated GFR 22 L, Est GFR ( Amer) 27 L D, Glucose 98 D, Magnesium 2.4 H I & O for Last 24 hours: Intake & Output 08/16/17 08/17/17 08/18/17 08/19/17 11:59 11:59 11:59 11:59 Intake Total 1746 / 1746 Output Total 975 / 975 Balance 771 / 771 Weight 186 lb 177 lb 2 oz Narrative: Patient examined this morning after admission. He is hard of hearing but otherwise is oriented 3. Seems to be aware of most of his medical problems. Oropharynx is slightly dry, anterior lung laughlin are clear, heart rate irregular , previous murmur noted. Pacemaker site looks good. Abdomen soft and nontender. Some bruising noted but no evidence of deformity of the ribs. Distal extremities are movable but he is overall globally weak. H&P: Result - Labs Labs: Short CBC 08/18/17 08/19/17 Range/Units 10:35 06:17 WBC 5.7 4.8 (4.8-10.8) K/mm3 Hgb 9.6 L 9.7 L (14.1-18.0) g/dL Hct 30.3 L 30.1 L (42.0-52.0) % Plt Count 196 205 (142-424) K/mm3 BMP 08/18/17 08/19/17 10:35 06:17 Sodium 136 139 Potassium 4.1 4.1 Chloride 101 104 Carbon Dioxide 29 27 BUN 22 H 20 H Creatinine 3.24 H 2.73 H Glucose 190 H 98 D Calcium 8.5 Cardiac Enzymes 08/18/17 08/18/17 08/18/17 Range/Units 10:35 13:04 18:25 Total Creatine Kinase 200 (39-308) U/L CK-MB (CK-2) < 0.5 (0.0-3.6) ng/ml Troponin I < 0.02 < 0.02 < 0.02 (0.00-0.06) ng/ml 08/19/17 Range/Units 00:20 Total Creatine Kinase (39-308) U/L CK-MB (CK-2) (0.0-3.6) ng/ml Troponin I < 0.02 (0.00-0.06) ng/ml Liver Function 08/18/17 Range/Units 10:35 Total Bilirubin 0.5 (0.2-1.0) mg/dL AST 23 (15-37) U/L ALT 25 (12-78) U/L Alkaline Phosphatase 87 (46-116) U/L Albumin 3.5 (3.4-5.0) gm/dL Urine 08/18/17 Range/Units 13:29 Urine Color Red (Yellow) Urine Appearance Cloudy (Clear) Urine pH 6.5 (5.0-8.5) Ur Specific [place] 1.010 (1.005-1.030) Urine Protein 2+ (Negative) Urine Glucose (UA) Negative (Negative) Assessment and Plan (1) Chronic renal failure Current visit: Yes Status: Acute Category: Medical Code(s): N18.9 - Chronic kidney disease, unspecified (2) Fall Current visit: Yes Status: Acute Category: Medical Code(s): W19.XXXA - Unspecified fall, initial encounter (3) Metastatic cancer Current visit: Yes Status: Acute Category: Medical Code(s): C79.9 - Secondary malignant neoplasm of unspecified site (4) Pre-syncope Current visit: Yes Status: Acute Category: Medical Code(s): R55 - Syncope and collapse (5) Rib pain on left side Current visit: Yes Status: Acute Category: Medical Code(s): R07.81 - Pleurodynia - Assessment and plan all Dx Assessment and Plan for all problems:: Patient has chronic medical problems that has accelerated to worsen his function significantly. I discussed penitentiary placement with patient, he does not wish to do this. PT evaluation today. Possible discharge home with home health. Patient is aware of his metastatic cancer and does wish to have a DNR status. Will respect this. He is already stopped his warfarin therapy, I will also hold his tamsulosin, Xanax and digoxin because of fall risk issues. His overall prognosis is poor.
[2017-08-19 11:36] VITALS: BP 170/61
--- NOTE | 2017-08-19 12:58 | Progress Note ---
Subjective Date: 08/19/17 Time: 12:55 Principal diagnosis: Pacemaker interrogation Interval history: [employer] pacemaker interrogation shows no episodes of atrial fibrillation or high ventricular rates since last interrogation on June 26, 2017. Lead thresholds are normal and no programming changes were made. Battery life is 1.9 yrs Atrial pacing is >99% Ventricular pacing is 61%. Exam Vital signs and Labs for Last 24 Hours: Temp Pulse Resp BP Pulse Ox 98.5 F 70 20 170/61 98 08/19/17 11:35 08/19/17 11:35 08/19/17 11:35 08/19/17 11:35 08/19/17 11:35 Laboratory Results - last 24 hr 08/18/17 13:04: Troponin I < 0.02 08/18/17 13:29: Urine Color Red, Urine Appearance Cloudy, Urine pH 6.5, Ur Specific [place] 1.010, Urine Protein 2+, Urine Glucose (UA) Negative, Urine Ketones Negative, Urine Blood 3+, Urine Nitrate Negative, Urine Bilirubin Negative, Urine Urobilinogen 0.2, Ur Leukocyte Esterase 2+ A, Urine RBC Tntc, Urine WBC Tntc, Ur Squamous Epith Cells 10-20, Urine Bacteria 4+ 08/18/17 18:25: Troponin I < 0.02 08/19/17 00:20: Troponin I < 0.02 08/19/17 06:17: WBC 4.8, RBC 3.40 L, Hgb 9.7 L, Hct 30.1 L, MCV 88.4, MCH 28.5, MCHC 32.3, RDW 16.0, Plt Count 205, MPV 7.9, Neut % (Auto) 73.0, Lymph % (Auto) 17.5, [place] % (Auto) 7.1, Eos % (Auto) 2.0, Baso % (Auto) 0.4, Neut # (Auto) 3.5 , Lymph # (Auto) 0.8, [place] # (Auto) 0.3, Eos # (Auto) 0.1, Baso # (Auto) 0.0 08/19/17 06:17: Sodium 139, Potassium 4.1, Chloride 104, Carbon Dioxide 27, Anion Gap 12.1, BUN 20 H, Creatinine 2.73 H, Estimated Creat Clear 22, Estimated GFR 22 L, Est GFR ( Amer) 27 L D, Glucose 98 D, Magnesium 2.4 H I & O for Last 24 hours: Intake & Output 08/17/17 08/18/17 08/19/17 08/20/17 11:59 11:59 11:59 11:59 Intake Total 1746 / 1746 Output Total 975 / 975 Balance 771 / 771 Weight 186 lb 177 lb 2 oz Progress Note: A&P (1) Chronic renal failure Status: Acute Current Visit: Yes (2) Fall Status: Acute Current Visit: Yes (3) Metastatic cancer Status: Acute Current Visit: Yes (4) Pre-syncope Status: Acute Current Visit: Yes (5) Rib pain on left side Status: Acute Current Visit: Yes
--- NOTE | 2017-08-19 13:27 | Discharge Summary ---
General - General Admission date:: 08/18/17 Discharge date: 08/19/17 HPI HPI: 87-year-old white male with recurrent atrial fibrillation and metastatic renal cell carcinoma status post left nephrectomy with multiple metastases in the abdomen and bladder, who came to the emergency department after a fall yesterday at home and striking his left ribs and having significant pain. In the ER he had no fractures noted but was noted to be very weak, have chest and abdominal pain and to have worsening renal function. He was admitted overnight for observation, further diagnostic testing. Hospital Course Hospital Course: Patient was observed overnight and did well. He was hydrated. His creatinine improved marginally back to his baseline this morning. He ate breakfast well. His pacemaker was interrogated and was found to have had no unusual events. Physical therapy evaluated him and he did well with good ambulation in the hallways and did not meet criteria for skilled care or further inpatient rehabilitation but they felt he would benefit from outpatient rehab with home health This was arranged. The patient will be discharged home. I will send him home with coverage for his dirty urine sediment. Culture pending. I will follow him closely in the office in 1 week. Please note the patient requires home health for PT/OT/nursing care with labs, he will need a BMP and CBC in 48 hours drawn by home health. 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 Objective Vital signs: Temp Pulse Resp BP Pulse Ox 98.5 F 70 20 170/61 98 08/19/17 11:35 08/19/17 11:35 08/19/17 11:35 08/19/17 11:35 08/19/17 11:35 Narrative: Patient is alert, oriented 3. Lungs clear, heart rate irregular but rate controlled, unchanged from exam on admission. Abdomen is soft. Nontender. Able to move all extremities well. Results Labs on day of discharge: Labs from last 24 hours 08/19/17 08/19/17 08/19/17 06:17 06:17 00:20 WBC 4.8 RBC 3.40 L Hgb 9.7 L Hct 30.1 L MCV 88.4 MCH 28.5 MCHC 32.3 RDW 16.0 Plt Count 205 MPV 7.9 Neut % (Auto) 73.0 Lymph % (Auto) 17.5 [place] % (Auto) 7.1 Eos % (Auto) 2.0 Baso % (Auto) 0.4 Neut # (Auto) 3.5 Lymph # (Auto) 0.8 [place] # (Auto) 0.3 Eos # (Auto) 0.1 Baso # (Auto) 0.0 Sodium 139 Potassium 4.1 Chloride 104 Carbon Dioxide 27 Anion Gap 12.1 BUN 20 H Creatinine 2.73 H Estimated Creat Clear 22 Estimated GFR 22 L Est GFR ( Amer) 27 L D Glucose 98 D Magnesium 2.4 H Troponin I < 0.02 Urine Color Urine Appearance Urine pH Ur Specific [place] Urine Protein Urine Glucose (UA) Urine Ketones Urine Blood Urine Nitrate Urine Bilirubin Urine Urobilinogen Ur Leukocyte Esterase Urine RBC Urine WBC Ur Squamous Epith Cells Urine Bacteria 08/18/17 08/18/17 08/18/17 18:25 13:29 13:04 WBC RBC Hgb Hct MCV MCH MCHC RDW Plt Count MPV Neut % (Auto) Lymph % (Auto) [place] % (Auto) Eos % (Auto) Baso % (Auto) Neut # (Auto) Lymph # (Auto) [place] # (Auto) Eos # (Auto) Baso # (Auto) Sodium Potassium Chloride Carbon Dioxide Anion Gap BUN Creatinine Estimated Creat Clear Estimated GFR Est GFR ( Amer) Glucose Magnesium Troponin I < 0.02 < 0.02 Urine Color Red Urine Appearance Cloudy Urine pH 6.5 Ur Specific [place] 1.010 Urine Protein 2+ Urine Glucose (UA) Negative Urine Ketones Negative Urine Blood 3+ Urine Nitrate Negative Urine Bilirubin Negative Urine Urobilinogen 0.2 Ur Leukocyte Esterase 2+ A Urine RBC Tntc Urine WBC Tntc Ur Squamous Epith Cells 10-20 Urine Bacteria 4+ DS: Diagnosis - Discharge Diagnosis (1) Chronic renal failure Status: Acute (2) Fall Status: Acute (3) Metastatic cancer Status: Acute (4) Pre-syncope Status: Acute (5) Rib pain on left side Status: Acute Discharge Plan - Patient Discharge Instructions ACTIVITY: Limited activity, Up with assistance DIET: continue same diet - Follow up Plan Follow up with: Ian Gabriel MD [Primary Care Provider] - 1 week Disposition: Home Health Service Home Medications: Home Medications Medication Instructions Recorded Confirmed Type alprazolam 0.25 mg tablet 0.25 mg PO TID 04/11/17 08/18/17 History amiodarone 200 mg tablet 200 mg PO DAILY 04/11/17 08/19/17 History levothyroxine 125 mcg capsule 125 mcg PO DAILY 04/11/17 08/18/17 History melatonin 5 mg tablet 5 mg PO HSP PRN 04/11/17 08/19/17 History metoprolol tartrate 50 mg tablet 50 mg PO TID 04/11/17 08/18/17 History pravastatin 40 mg tablet 40 mg PO HS 04/11/17 08/19/17 History ranitidine 150 mg capsule 150 mg PO BID 04/11/17 08/18/17 History tamsulosin 0.4 mg capsule 0.4 mg PO BID 04/11/17 08/18/17 History Digoxin 125 mcg PO DAILY 07/08/17 08/18/17 History Furosemide [Furosemide 40MG tAB] 40 mg PO DAILY 07/08/17 08/18/17 History Oxycodone HCl/Acetaminophen 1 tab PO Q6HP PRN 08/02/17 08/18/17 History [Percocet 5/325mg tablet] Aspirin [Aspirin 81mg chewable 81 mg PO DAILY 08/19/17 08/19/17 History tab] Fluticasone Propionate [Flovent 1 inh IH BID 08/19/17 08/19/17 History Diskus] Pantoprazole Sodium [Protonix 40mg 40 mg PO DAILY 08/19/17 08/19/17 History tablet] Polyethylene Glycol 3350 [Miralax 17 gm PO DAILY 08/19/17 08/19/17 History 17gm Packet] Tiotropium [place] [Spiriva 2 puff IH DAILY 08/19/17 08/19/17 History 18mcg/puff inhaler] Prescriptions/Medication Reconciliation: New Nitrofurantoin Monohyd/M-Cryst [Macrobid 100 mg Capsule] 100 mg PO BID #14 cap Continue levothyroxine 125 mcg capsule 125 mcg PO DAILY amiodarone 200 mg tablet 200 mg PO DAILY metoprolol tartrate 50 mg tablet 50 mg PO TID pravastatin 40 mg tablet 40 mg PO HS ranitidine 150 mg capsule 150 mg PO BID alprazolam 0.25 mg tablet 0.25 mg PO TID tamsulosin 0.4 mg capsule 0.4 mg PO BID melatonin 5 mg tablet 5 mg PO HSP PRN PRN Reason: Insomnia Digoxin 125 mcg PO DAILY Polyethylene Glycol 3350 [Miralax 17gm Packet] 17 gm PO DAILY Fluticasone Propionate [Flovent Diskus] 1 inh IH BID Oxycodone HCl/Acetaminophen [Percocet 5/325mg tablet] 1 tab PO Q6HP PRN PRN Reason: pain Aspirin [Aspirin 81mg chewable tab] 81 mg PO DAILY Tiotropium [place] [Spiriva 18mcg/puff inhaler] 2 puff IH DAILY Pantoprazole Sodium [Protonix 40mg tablet] 40 mg PO DAILY Discontinued Furosemide [Furosemide 40MG tAB] 40 mg PO DAILY
== END 2017-08-19 14:26 | disposition home health service (06) ==
LOC: 2ND 09:11 → ER 09:11 → 2ND 13:35
PROVIDERS: ADMIT Internal Medicine Adolescent Medicine; ATTEND Internal Medicine Adolescent Medicine